=== PATIENT | male | born 1965 | race Two or more races ===

== ENCOUNTER 2022-10-01 18:26 | Emergency (ER) | payer SELFPAY ==
[2022-10-01] MEDS ORDERED: Diphtheria,Pertussis(Acell),Tetanus Vaccine 0.5 ML Syringe IM ONE (20:30)
== END 2022-10-01 21:30 | disposition home or self-care (01) ==
LOC: JD.ED 18:26
DX: T23.322A Burn of third degree of single left finger (nail) except thumb, initial encounter (principal); E11.9 Type 2 diabetes mellitus without complications; E66.9 Obesity, unspecified; Z68.30 Body mass index [BMI] 30.0-30.9, adult; Z90.49 Acquired absence of other specified parts of digestive tract; Z23 Encounter for immunization; X15.8XXA Contact with other hot household appliances, initial encounter
CPT/HCPCS: 90471; 90715; 99282; 99283-25